=== PATIENT | female | born 1935 | race African-American/Black ===

== ENCOUNTER 2020-07-11 15:13 | Emergency (ER) | payer OTHER, MEDICAID ==
[~2020-07-11] VITALS: Ht 154.9 cm; Wt 53.0 kg
[2020-07-11] MEDS ORDERED: SODIUM CHLORIDE 0.9% 1,000 ML IV ONE (15:30)
[2020-07-11 17:15] LABS: HEMATOCRIT. 29.2 % (36.0-48.0); HEMOGLOBIN. 8.9 g/dL (12.0-16.0); MEAN CORPUSCULAR HEMOGLOBIN 27.9 pg (28.0-32.0); MEAN CORPUSCULAR VOLUME 91.7 fL (81.0-99.0); MEAN PLATELET VOLUME 7.5 fl (7.4-10.4); PLATELET 445 x1000/uL (130-400); RED BLOOD CELL COUNT 3.18 mill/uL (4.2-5.4); RED CELL DISTRIBUTION WIDTH 17.3 % (11.6-14.6)
[2020-07-11 17:24] LABS: CHLORIDE 109 mEq/L (98-107)
[2020-07-11 17:35] LABS: PROTHROMBIN TIME 10.4 sec (9.6-11.0)
[2020-07-11 17:39] LABS: PLATELET ESTIMATE INCREASED
[2020-07-11 18:09] LABS: CLARITY URINE CLEAR (CLEAR); COLOR URINE YELLOW (YELLOW); KETONES URINE NEGATIVE (NEGATIVE); LEUKOCYTE ESTERASE URINE 1+ (NEGATIVE); NITRITE URINE NEGATIVE (NEGATIVE); OCCULT BLOOD URINE NEGATIVE (NEGATIVE); PH URINE 5.5 (4.5-8.0); PROTEIN URINE NEGATIVE (NEGATIVE); SPECIFIC GRAVITY URINE 1.018 (1.005-1.030); UROBILINOGEN URINE 0.2 E.U./dL (0.2-1.0)
[2020-07-11] MEDS ORDERED: PIPERACILLIN/TAZ 3.375G PREMIX 50 ML IV NR (18:15)
[2020-07-11] MEDS ORDERED: SODIUM CHLORIDE 0.9% 1000ML BAG (SEPSIS BOLUS) IV NR (18:15)
[2020-07-11 20:58] VITALS: BP 150/71
== END 2020-07-11 20:58 | disposition short-term general hospital (02) ==
LOC: ER 15:13 → CANBEDREQ 23:04
DX: A41.9 Sepsis, unspecified organism (principal); N39.0 Urinary tract infection, site not specified; R62.7 Adult failure to thrive; D64.9 Anemia, unspecified; I10 Essential (primary) hypertension; K50.90 Crohn's disease, unspecified, without complications; M19.90 Unspecified osteoarthritis, unspecified site; Z68.22 Body mass index [BMI] 22.0-22.9, adult
CPT/HCPCS: 36415; 70450; 71045; 80053; 81003; 83605; 83880; 84145; 84484; 85025; 85610; 86850; 86900; 86901; 87040; 87086; 93005; 96361; 96365; 99285; J2543; J7030

== ENCOUNTER 2021-02-16 11:48 | Inpatient (IN) | payer MEDICARE, MEDICAID ==
[~2021-02-16] VITALS: Ht 157.5 cm; Wt 44.9 kg
[2021-02-16] MEDS ORDERED: SODIUM CHLORIDE 0.9% 1000ML BAG (SEPSIS BOLUS) IV ONE (13:15)
[2021-02-16 13:23] LABS: HEMATOCRIT. 30.8 % (36.0-48.0); MEAN CORPUSCULAR HEMOGLOBIN 25.9 pg (28.0-32.0); MEAN CORPUSCULAR VOLUME 88.7 fL (81.0-99.0); MEAN PLATELET VOLUME 8.1 fl (7.4-10.4); PLATELET 580 x1000/uL (130-400); RED BLOOD CELL COUNT 3.47 mill/uL (4.2-5.4); RED CELL DISTRIBUTION WIDTH 17.8 % (11.6-14.6)
[2021-02-16 13:26] LABS: CHLORIDE 112 mEq/L (98-107)
[2021-02-16 13:45] LABS: PROTHROMBIN TIME 10.9 sec (9.6-11.0)
[2021-02-16] MEDS ORDERED: CEFTRIAXONE 1 G PREMIX 50 ML IV ONE (13:45)
[2021-02-16 14:12] LABS: BG BASE EXCESS -10.6 mmol/L (-2.0-2.0); BG CARBOXYHEMOGLOBIN 0.2 % (0.5-1.5); BG DEOXYHEMOGLOBIN 0.8 % (0.0-5.0); BG FRACTION INSPIRED OXYGEN 36; BG HCO3 ACT 13.9 mmol/L (22.0-26.0); BG METHEMOGLOBIN 0.3 % (0.0-1.5); BG OXYGEN SATURATION 99.2 % (92.0-98.5); BG OXYHEMOGLOBIN 98.7 % (94.0-97.0); BG PCO2 26.3 mmHg (35.0-45.0); BG PH 7.342 (7.350-7.450); BG PO2 189.8 mmHg (75.0-100.0); BG SAMPLE SITE RIGHT BRACHIAL; BG TOTAL HEMOGLOBIN 8.4 g/dL (12.0-18.0); BG VENT MODE NASAL CANNULA
[2021-02-16 14:48] LABS: CLARITY URINE CLEAR (CLEAR); COLOR URINE YELLOW (YELLOW); KETONES URINE 3+ (NEGATIVE); LEUKOCYTE ESTERASE URINE NEGATIVE (NEGATIVE); NITRITE URINE NEGATIVE (NEGATIVE); OCCULT BLOOD URINE NEGATIVE (NEGATIVE); PH URINE 5.5 (4.5-8.0); PROTEIN URINE 1+ (NEGATIVE); SPECIFIC GRAVITY URINE 1.021 (1.005-1.030); UROBILINOGEN URINE 0.2 E.U./dL (0.2-1.0)
[2021-02-16] MEDS ORDERED: DEXTROSE 50% WATER 50ML SYRINGE IV ONE (15:15)
[2021-02-16] MEDS ORDERED: DILTIAZEM HCL 5MG/ML 5ML VIAL IV ONE ×2 (15:45→16:30)
[2021-02-16 15:57] LABS: PLATELET ESTIMATE INCREASED
[2021-02-16] MEDS ORDERED: DILTIAZEM HCL 125 MG in DEXT 5% WATER 100 ML IV ONE ×2 (16:00→16:30)
[2021-02-16 18:45] VITALS: BP 121/41
[2021-02-16] MEDS ORDERED: DIPHENHYDRAMINE 50MG/ML VIAL IV PRN (19:00)
[2021-02-16] MEDS ORDERED: ZOLPIDEM TARTRATE 5MG TABLET PO PRN (19:00)
[2021-02-16] MEDS ORDERED: ACETAMINOPHEN 325MG TABLET PO PRN ×2 (19:00)
[2021-02-16 20:00] VITALS: BP 106/38
[2021-02-16] MEDS ORDERED: ENOXAPARIN 40MG/0.4ML SYR SUBCUT SCH (20:00)
[2021-02-16 20:50] VITALS: BP 122/41
[2021-02-16 22:00] VITALS: BP 100/38
[2021-02-16] MEDS: DEXT 5%/0.45% NACL 1000ML 1,000 ML IV SCH (22:14)
[2021-02-17] VITALS (10 sets, daily range): BP systolic 97–148; BP diastolic 41–90
[2021-02-17] MEDS: DEXT 5%/0.45% NACL 1000ML 1,000 ML IV SCH ×2 (05:44→15:00)
[2021-02-17 08:21] LABS: CHLORIDE 116 mEq/L (98-107)
[2021-02-17 08:26] LABS: PHOSPHORUS 2.4 mg/dL (2.5-4.9)
[2021-02-17] MEDS: ATENOLOL 25MG TABLET PO SCH ×2 (08:35→16:21)
[2021-02-17] MEDS ORDERED: ATENOLOL 50 MG TABLET PO SCH (09:00)
[2021-02-17] MEDS: DILTIAZEM HCL 30MG TABLET PO SCH ×2 (10:00→17:20)
[2021-02-17 11:25] LABS: HEMATOCRIT. 23.2 % (36.0-48.0); HEMOGLOBIN. 7.2 g/dL (12.0-16.0); MEAN CORPUSCULAR HEMOGLOBIN 26.5 pg (28.0-32.0); MEAN CORPUSCULAR VOLUME 85.9 fL (81.0-99.0); MEAN PLATELET VOLUME 7.8 fl (7.4-10.4); PLATELET 346 x1000/uL (130-400); RED BLOOD CELL COUNT 2.71 mill/uL (4.2-5.4); RED CELL DISTRIBUTION WIDTH 16.9 % (11.6-14.6)
[2021-02-17] MEDS: POTASSIUM CHLORIDE 20MEQ TABLET SR PO SCH ×2 (12:40→15:24)
[2021-02-17] MEDS ORDERED: MAGNESIUM 1 G PREMIX 100 ML IV NR (13:00)
[2021-02-17] MEDS ORDERED: POTASSIUM PHOS,M-BASIC-D-BASIC 15 MMOL in DEXT 5% WATER 245 ML IV NR (13:00)
[2021-02-17] MEDS ORDERED: ENOXAPARIN 30MG/0.3ML SYR SUBCUT SCH (21:00)
[2021-02-17 22:50] LABS: PLATELET ESTIMATE NORMAL
[2021-02-18] VITALS (11 sets, daily range): BP systolic 94–153; BP diastolic 41–78
[2021-02-18] MEDS: DEXT 5%/0.45% NACL 1000ML 1,000 ML IV SCH ×3 (00:12→20:57)
[2021-02-18] MEDS: DILTIAZEM HCL 30MG TABLET PO SCH ×4 (02:06→21:40)
[2021-02-18 05:39] LABS: CHLORIDE 113 mEq/L (98-107)
[2021-02-18 05:46] LABS: PHOSPHORUS 2.5 mg/dL (2.5-4.9)
[2021-02-18 07:32] LABS: BASOPHILS % 0.2 % (0.0-2.0); EOSINOPHILS % 1.8 % (0.0-5.0); LYMPHOCYTES % 7.9 % (20.0-50.0); MEAN CORPUSCULAR HEMOGLOBIN 25.2 pg (28.0-32.0); MEAN CORPUSCULAR VOLUME 81.9 fL (81.0-99.0); MEAN PLATELET VOLUME 8.6 fl (7.4-10.4); MONOCYTES % 10.1 % (2.0-8.0); PLATELET 318 x1000/uL (130-400); RED BLOOD CELL COUNT 2.52 mill/uL (4.2-5.4); RED CELL DISTRIBUTION WIDTH 16.9 % (11.6-14.6)
[2021-02-18 08:48] LABS: HEMATOCRIT. 20.6 % (36.0-48.0); HEMOGLOBIN. 6.3 g/dL (12.0-16.0)
[2021-02-18] MEDS: ATENOLOL 25MG TABLET PO SCH ×3 (08:56→21:41)
[2021-02-18] MEDS: PANTOPRAZOLE SODIUM 40 MG/VIAL IV SCH ×2 (10:38→20:57)
[2021-02-18 16:27] LABS: BASOPHILS % 0.4 % (0.0-2.0); EOSINOPHILS % 1.9 % (0.0-5.0); HEMATOCRIT. 25.5 % (36.0-48.0); HEMOGLOBIN. 8.3 g/dL (12.0-16.0); LYMPHOCYTES % 7.5 % (20.0-50.0); MEAN CORPUSCULAR HEMOGLOBIN 27.1 pg (28.0-32.0); MEAN CORPUSCULAR VOLUME 82.7 fL (81.0-99.0); MEAN PLATELET VOLUME 7.7 fl (7.4-10.4); MONOCYTES % 9.1 % (2.0-8.0); NEUTROPHILS % 81.1 % (40.0-76.0); PLATELET 332 x1000/uL (130-400); RED BLOOD CELL COUNT 3.08 mill/uL (4.2-5.4); RED CELL DISTRIBUTION WIDTH 16.8 % (11.6-14.6)
[2021-02-18 16:42] LABS: PROTHROMBIN TIME 10.5 sec (9.6-11.0)
[2021-02-18 16:43] LABS: TOTAL IRON BINDING CAPACITY 262 ug/dL (250-450)
[2021-02-18 17:04] LABS: FERRITIN 33 ng/mL (10-291)
[2021-02-18 17:15] LABS: HEPATITIS B SURFACE ANTIGEN NEGATIVE
[2021-02-18 17:21] LABS: VITAMIN B12 SERUM 903 pg/mL (211-911)
[2021-02-18 17:45] LABS: HEPATITIS A AB IGM NEGATIVE (NEGATIVE)
[2021-02-18 20:23] LABS: HEMATOCRIT 30.4 % (36.0-48.0); HEMOGLOBIN 9.7 g/dL (12.0-16.0)
[2021-02-19] VITALS (7 sets, daily range): BP systolic 113–144; BP diastolic 46–73
[2021-02-19] MEDS: DILTIAZEM HCL 30MG TABLET PO SCH ×3 (05:37→21:04)
[2021-02-19 06:28] LABS: HEMATOCRIT. 26.5 % (36.0-48.0); HEMOGLOBIN. 8.5 g/dL (12.0-16.0); MEAN CORPUSCULAR HEMOGLOBIN 26.4 pg (28.0-32.0); MEAN CORPUSCULAR VOLUME 82.1 fL (81.0-99.0); MEAN PLATELET VOLUME 7.9 fl (7.4-10.4); PLATELET 320 x1000/uL (130-400); RED BLOOD CELL COUNT 3.23 mill/uL (4.2-5.4); RED CELL DISTRIBUTION WIDTH 16.9 % (11.6-14.6)
[2021-02-19 06:30] LABS: CHLORIDE 112 mEq/L (98-107)
[2021-02-19] MEDS: DEXT 5%/0.45% NACL 1000ML 1,000 ML IV SCH ×2 (06:51→17:20)
[2021-02-19] MEDS: PANTOPRAZOLE SODIUM 40 MG/VIAL IV SCH ×2 (08:23→21:03)
[2021-02-19] MEDS: ATENOLOL 25MG TABLET PO SCH ×2 (10:17→21:05)
[2021-02-19 14:21] LABS: PLATELET ESTIMATE NORMAL
[2021-02-20] VITALS (11 sets, daily range): BP systolic 90–137; BP diastolic 39–90
[2021-02-20] MEDS: DEXT 5%/0.45% NACL 1000ML 1,000 ML IV SCH ×3 (03:30→23:00)
[2021-02-20] MEDS: DILTIAZEM HCL 30MG TABLET PO SCH ×2 (06:16→20:14)
[2021-02-20 06:38] LABS: PARTIAL THROMBOPLASTIN TIME 34.1 sec (23.4-31.0); PROTHROMBIN TIME 10.9 sec (9.6-11.0)
[2021-02-20 06:41] LABS: HEMATOCRIT. 26.4 % (36.0-48.0); HEMOGLOBIN. 8.5 g/dL (12.0-16.0); MEAN CORPUSCULAR HEMOGLOBIN 26.1 pg (28.0-32.0); MEAN CORPUSCULAR VOLUME 81.2 fL (81.0-99.0); MEAN PLATELET VOLUME 7.8 fl (7.4-10.4); PLATELET 323 x1000/uL (130-400); RED BLOOD CELL COUNT 3.25 mill/uL (4.2-5.4); RED CELL DISTRIBUTION WIDTH 17.2 % (11.6-14.6)
[2021-02-20 06:42] LABS: CHLORIDE 111 mEq/L (98-107)
[2021-02-20] MEDS: ATENOLOL 25MG TABLET PO SCH ×2 (09:00→20:14)
[2021-02-20] MEDS: PANTOPRAZOLE SODIUM 40 MG/VIAL IV SCH ×2 (09:30→20:13)
[2021-02-20 16:31] LABS: PLATELET ESTIMATE NORMAL
[2021-02-20] MEDS ORDERED: MIDAZOLAM HCL 5 MG/5 ML VIAL IV PRN (17:17)
[2021-02-20] MEDS ORDERED: MIDAZOLAM HCL 5 MG/5 ML VIAL ONE (17:20)
[2021-02-20] MEDS ORDERED: FENTANYL CITRATE/PF 50MCG/ML 2ML VIAL ONE (17:21)
[2021-02-21] VITALS (35 sets, daily range): BP systolic 97–146; BP diastolic 44–86
[2021-02-21] MEDS: DEXT 5%/0.45% NACL 1000ML 1,000 ML IV SCH ×3 (00:25→20:34)
[2021-02-21] MEDS: DILTIAZEM HCL 30MG TABLET PO SCH ×4 (02:00→20:35)
[2021-02-21 06:47] LABS: BASOPHILS % 0.4 % (0.0-2.0); HEMATOCRIT. 23.4 % (36.0-48.0); HEMOGLOBIN. 7.6 g/dL (12.0-16.0); LYMPHOCYTES % 8.6 % (20.0-50.0); MEAN CORPUSCULAR HEMOGLOBIN 26.5 pg (28.0-32.0); MEAN CORPUSCULAR VOLUME 81.1 fL (81.0-99.0); MEAN PLATELET VOLUME 7.7 fl (7.4-10.4); MONOCYTES % 10.7 % (2.0-8.0); NEUTROPHILS % 76.3 % (40.0-76.0); PLATELET 314 x1000/uL (130-400); RED BLOOD CELL COUNT 2.88 mill/uL (4.2-5.4); RED CELL DISTRIBUTION WIDTH 16.5 % (11.6-14.6)
[2021-02-21 06:55] LABS: CHLORIDE 108 mEq/L (98-107)
[2021-02-21] MEDS: PANTOPRAZOLE SODIUM 40 MG/VIAL IV SCH ×2 (08:22→20:40)
[2021-02-21] MEDS: ATENOLOL 25MG TABLET PO SCH (08:23)
[2021-02-21] MEDS ORDERED: AMIODARONE HCL 150 MG in DEXT 5% WATER 100 ML IV NR (08:45)
[2021-02-21 09:11] LABS: SACCHAROMYCES CEREVISIAE IGG <20.0 Units (0.0-24.9); SACCHAROMYCES CEREVISIAE IGM <20.0 Units (0.0-24.9)
[2021-02-21] MEDS: AMIODARONE HCL 900 MG in DEXT 5% WATER 482 ML IV SCH (09:17)
[2021-02-21] MEDS ORDERED: POTASSIUM CHLORIDE 20MEQ TABLET SR PO SCH (21:00)
[2021-02-21] MEDS ORDERED: MAGNESIUM 2 G PREMIX 50 ML IV SCH (21:00)
[2021-02-22] VITALS (13 sets, daily range): BP systolic 106–149; BP diastolic 42–63
[2021-02-22] MEDS: ONDANSETRON HCL 4MG/2ML INJ IV PRN (02:36)
[2021-02-22] MEDS: DILTIAZEM HCL 30MG TABLET PO SCH ×4 (02:36→21:22)
[2021-02-22] MEDS: DEXT 5%/0.45% NACL 1000ML 1,000 ML IV SCH ×2 (05:00→16:04)
[2021-02-22 05:05] LABS: CHLORIDE 107 mEq/L (98-107)
[2021-02-22] MEDS: AMIODARONE HCL 900 MG in DEXT 5% WATER 482 ML IV SCH (05:20)
[2021-02-22 06:09] LABS: HEMATOCRIT. 21.4 % (36.0-48.0); HEMOGLOBIN. 7.1 g/dL (12.0-16.0); MEAN CORPUSCULAR HEMOGLOBIN 26.1 pg (28.0-32.0); MEAN PLATELET VOLUME 7.9 fl (7.4-10.4); PLATELET 348 x1000/uL (130-400); RED CELL DISTRIBUTION WIDTH 16.6 % (11.6-14.6)
[2021-02-22] MEDS: SUCRALFATE 1 G/10 ML UDC PO SCH ×4 (07:30→21:22)
[2021-02-22] MEDS: PANTOPRAZOLE SODIUM 40 MG/VIAL IV SCH ×3 (09:00→21:22)
[2021-02-22 11:13] LABS: PLATELET ESTIMATE NORMAL
[2021-02-23] VITALS (9 sets, daily range): BP systolic 113–146; BP diastolic 59–106
[2021-02-23] MEDS: DEXT 5%/0.45% NACL 1000ML 1,000 ML IV SCH ×3 (01:55→20:40)
[2021-02-23] MEDS: DILTIAZEM HCL 30MG TABLET PO SCH ×2 (02:06→09:13)
[2021-02-23 06:20] LABS: HEMATOCRIT. 23.3 % (36.0-48.0); HEMOGLOBIN. 7.7 g/dL (12.0-16.0); MEAN CORPUSCULAR HEMOGLOBIN 25.9 pg (28.0-32.0); MEAN CORPUSCULAR VOLUME 78.8 fL (81.0-99.0); MEAN PLATELET VOLUME 7.8 fl (7.4-10.4); PLATELET 357 x1000/uL (130-400); RED BLOOD CELL COUNT 2.96 mill/uL (4.2-5.4)
[2021-02-23 06:26] LABS: CHLORIDE 103 mEq/L (98-107)
[2021-02-23] MEDS: SUCRALFATE 1 G/10 ML UDC PO SCH ×4 (06:47→20:45)
[2021-02-23] MEDS ORDERED: AMIODARONE HCL 200 MG TABLET PO SCH ×2 (09:00→10:30)
[2021-02-23] MEDS: PANTOPRAZOLE SODIUM 40 MG/VIAL IV SCH ×2 (09:14→20:39)
[2021-02-23] MEDS ORDERED: DILTIAZEM HCL 5MG/ML 5ML VIAL IV PRN (10:30)
[2021-02-23 14:38] LABS: PLATELET ESTIMATE NORMAL
[2021-02-23] MEDS: DILTIAZEM HCL 60MG TABLET PO SCH ×2 (14:52→20:39)
[2021-02-23] MEDS: AMIODARONE HCL 200 MG TABLET PO SCH (18:11)
[2021-02-24] VITALS (10 sets, daily range): BP systolic 102–130; BP diastolic 42–60
[2021-02-24] MEDS: DILTIAZEM HCL 60MG TABLET PO SCH ×4 (01:50→20:37)
[2021-02-24] MEDS ORDERED: MORPHINE SULFATE 4 MG/ML CPJ (NOT FOR IM USE) IV PRN (02:15)
[2021-02-24] MEDS: MORPHINE SULFATE 4 MG/ML CPJ (NOT FOR IM USE) IV PRN (02:37)
[2021-02-24] MEDS: DEXT 5%/0.45% NACL 1000ML 1,000 ML IV SCH ×2 (07:00→16:11)
[2021-02-24] MEDS: PANTOPRAZOLE SODIUM 40 MG/VIAL IV SCH ×2 (08:15→20:37)
[2021-02-24] MEDS: SUCRALFATE 1 G/10 ML UDC PO SCH ×4 (08:15→20:36)
[2021-02-24] MEDS: AMIODARONE HCL 200 MG TABLET PO SCH ×2 (08:16→16:10)
[2021-02-24] MEDS ORDERED: SORBITOL 70% SOLN 30ML PO SCH ×2 (12:00→16:00)
[2021-02-24] MEDS: ONDANSETRON HCL 4MG/2ML INJ IV PRN (20:42)
[2021-02-25] VITALS (11 sets, daily range): BP systolic 116–168; BP diastolic 53–100
[2021-02-25] MEDS: MORPHINE SULFATE 4 MG/ML CPJ (NOT FOR IM USE) IV PRN (01:08)
[2021-02-25] MEDS: DILTIAZEM HCL 60MG TABLET PO SCH ×4 (01:52→22:47)
[2021-02-25] MEDS: DEXT 5%/0.45% NACL 1000ML 1,000 ML IV SCH ×2 (03:23→13:00)
[2021-02-25] MEDS: ONDANSETRON HCL 4MG/2ML INJ IV PRN ×2 (04:09→09:35)
[2021-02-25] MEDS ORDERED: MORPHINE SULFATE 4 MG/ML CPJ (NOT FOR IM USE) IV NR (04:30)
[2021-02-25 06:21] LABS: HEMATOCRIT. 26.1 % (36.0-48.0); HEMOGLOBIN. 8.4 g/dL (12.0-16.0); MEAN CORPUSCULAR VOLUME 77.8 fL (81.0-99.0); MEAN PLATELET VOLUME 7.8 fl (7.4-10.4); PLATELET 556 x1000/uL (130-400); RED BLOOD CELL COUNT 3.35 mill/uL (4.2-5.4); RED CELL DISTRIBUTION WIDTH 17.2 % (11.6-14.6)
[2021-02-25 06:39] LABS: PROTHROMBIN TIME 10.7 sec (9.6-11.0)
[2021-02-25] MEDS: SUCRALFATE 1 G/10 ML UDC PO SCH ×4 (06:50→22:46)
[2021-02-25 07:50] LABS: CHLORIDE 100 mEq/L (98-107)
[2021-02-25] MEDS: AMIODARONE HCL 200 MG TABLET PO SCH ×2 (09:35→22:47)
[2021-02-25] MEDS: PANTOPRAZOLE SODIUM 40 MG/VIAL IV SCH ×2 (09:35→22:47)
[2021-02-25] MEDS ORDERED: DIGOXIN 500MCG/2ML AMP IV NR (16:00)
[2021-02-25 16:33] LABS: PLATELET ESTIMATE INCREASED
[2021-02-25] MEDS ORDERED: MIDAZOLAM HCL 5 MG/5 ML VIAL ONE (17:18)
[2021-02-25] MEDS ORDERED: FENTANYL CITRATE/PF 50MCG/ML 2ML VIAL ONE (17:19)
[2021-02-25] MEDS ORDERED: AMIODARONE HCL 50MG/ML 9ML VIAL IV ONE (18:15)
[2021-02-25] MEDS ORDERED: AMIODARONE HCL 150 MG in DEXT 5% WATER 100 ML IV NR (19:30)
[2021-02-25] MEDS ORDERED: AMIODARONE HCL 900 MG in DEXT 5% WATER 500 ML IV NR (20:00)
[2021-02-26] VITALS (8 sets, daily range): BP systolic 103–143; BP diastolic 47–77
[2021-02-26] MEDS: DILTIAZEM HCL 60MG TABLET PO SCH ×4 (03:03→20:00)
[2021-02-26] MEDS: DEXT 5%/0.45% NACL 1000ML 1,000 ML IV SCH ×2 (03:04→13:03)
[2021-02-26 06:00] LABS: CHLORIDE 101 mEq/L (98-107)
[2021-02-26 06:33] LABS: HEMATOCRIT. 22.5 % (36.0-48.0); HEMOGLOBIN. 7.2 g/dL (12.0-16.0); MEAN CORPUSCULAR HEMOGLOBIN 25.2 pg (28.0-32.0); MEAN CORPUSCULAR VOLUME 78.6 fL (81.0-99.0); MEAN PLATELET VOLUME 7.9 fl (7.4-10.4); PLATELET 486 x1000/uL (130-400); RED BLOOD CELL COUNT 2.87 mill/uL (4.2-5.4); RED CELL DISTRIBUTION WIDTH 17.4 % (11.6-14.6)
[2021-02-26] MEDS: SUCRALFATE 1 G/10 ML UDC PO SCH ×4 (08:23→20:36)
[2021-02-26] MEDS: PANTOPRAZOLE SODIUM 40 MG/VIAL IV SCH ×2 (08:23→20:36)
[2021-02-26] MEDS ORDERED: AMIODARONE HCL 200 MG TABLET PO SCH (09:00)
[2021-02-26] MEDS: AMIODARONE HCL 200 MG TABLET PO SCH ×2 (09:00→20:49)
[2021-02-26] MEDS ORDERED: KCL 20MEQ/100ML PREMIX 100 ML IV SCH (12:00)
[2021-02-26] MEDS ORDERED: AMIODARONE HCL 900 MG in DEXT 5% WATER 482 ML IV SCH (12:00)
[2021-02-26] MEDS ORDERED: POTASSIUM CHLORIDE INJ 40 MEQ in SODIUM CHLORIDE 0.9% 250 ML IV SCH (13:00)
[2021-02-26] MEDS ORDERED: NA PHOS,M-B/NA PHOS,DI-BA ENEMA 118ML PR SCH (13:00)
[2021-02-26] MEDS ORDERED: POTASSIUM CHLORIDE 20MEQ TABLET SR PO SCH (15:00)
[2021-02-26 15:30] LABS: PLATELET ESTIMATE SLIGHTLY INCREASED
[2021-02-26] MEDS ORDERED: MIDAZOLAM HCL 5 MG/5 ML VIAL ONE (17:02)
[2021-02-26] MEDS ORDERED: FENTANYL CITRATE/PF 50MCG/ML 2ML VIAL ONE (17:02)
[2021-02-26] MEDS ORDERED: MIDAZOLAM HCL 5 MG/5 ML VIAL IV PRN (17:30)
[2021-02-26] MEDS: KCL 20MEQ/100ML PREMIX 100 ML IV SCH ×2 (20:40→20:46)
[2021-02-27] VITALS (8 sets, daily range): BP systolic 110–145; BP diastolic 48–76
[2021-02-27] MEDS: DILTIAZEM HCL 60MG TABLET PO SCH ×3 (02:10→16:00)
[2021-02-27] MEDS: DEXT 5%/0.45% NACL 1000ML 1,000 ML IV SCH (04:41)
[2021-02-27 07:07] LABS: HEMATOCRIT. 23.4 % (36.0-48.0); HEMOGLOBIN. 7.4 g/dL (12.0-16.0); MEAN CORPUSCULAR HEMOGLOBIN 25.2 pg (28.0-32.0); MEAN CORPUSCULAR VOLUME 79.4 fL (81.0-99.0); MEAN PLATELET VOLUME 7.8 fl (7.4-10.4); PLATELET 468 x1000/uL (130-400); RED BLOOD CELL COUNT 2.95 mill/uL (4.2-5.4)
[2021-02-27 07:09] LABS: CHLORIDE 106 mEq/L (98-107)
[2021-02-27] MEDS: SUCRALFATE 1 G/10 ML UDC PO SCH ×3 (08:47→18:18)
[2021-02-27] MEDS: PANTOPRAZOLE SODIUM 40 MG/VIAL IV SCH (08:47)
[2021-02-27] MEDS: AMIODARONE HCL 200 MG TABLET PO SCH (10:10)
[2021-02-27 13:28] LABS: PLATELET ESTIMATE INCREASED
[2021-02-27] MEDS ORDERED: PANTOPRAZOLE 40MG DR TABLET PO SCH (21:00)
== END 2021-02-27 19:55 | DRG 308 ==
LOC: ER 11:48 → 5EST 14:53 → EDBEDREQ 14:57 → EDBEDREQTM 14:57 → EDBEDREQSVC 14:57 → ENRESERV 15:27
PROVIDERS: ADMIT Internal Medicine; ATTEND Internal Medicine
PROC: 30233N1 Transfusion of Nonautologous Red Blood Cells into Peripheral Vein, Percutaneous Approach (ICD-10-PCS; principal; 2021-02-18)
PROC: 0DB68ZX Excision of Stomach, Via Natural or Artificial Opening Endoscopic, Diagnostic (ICD-10-PCS; 2021-02-20)
PROC: 0DJD8ZZ Inspection of Lower Intestinal Tract, Via Natural or Artificial Opening Endoscopic (ICD-10-PCS; 2021-02-26)
DX: I48.0 Paroxysmal atrial fibrillation (principal); E43 Unspecified severe protein-calorie malnutrition; I67.82 Cerebral ischemia; J84.9 Interstitial pulmonary disease, unspecified; Z68.1 Body mass index [BMI] 19.9 or less, adult; K50.911 Crohn's disease, unspecified, with rectal bleeding; I47.1 Supraventricular tachycardia; I48.92 Unspecified atrial flutter; E16.2 Hypoglycemia, unspecified; I10 Essential (primary) hypertension; I49.3 Ventricular premature depolarization; R62.7 Adult failure to thrive; Y92.009 Unspecified place in unspecified non-institutional (private) residence as the place of occurrence of the external cause; Z86.73 Personal history of transient ischemic attack (TIA), and cerebral infarction without residual deficits; Z87.891 Personal history of nicotine dependence; Z20.822 Contact with and (suspected) exposure to COVID-19; D50.9 Iron deficiency anemia, unspecified; E87.6 Hypokalemia; I08.3 Combined rheumatic disorders of mitral, aortic and tricuspid valves; I25.10 Atherosclerotic heart disease of native coronary artery without angina pectoris; I49.1 Atrial premature depolarization; K29.70 Gastritis, unspecified, without bleeding; K44.9 Diaphragmatic hernia without obstruction or gangrene; K57.30 Diverticulosis of large intestine without perforation or abscess without bleeding; K59.00 Constipation, unspecified; K64.8 Other hemorrhoids; K76.0 Fatty (change of) liver, not elsewhere classified; K80.20 Calculus of gallbladder without cholecystitis without obstruction; L85.3 Xerosis cutis; M19.90 Unspecified osteoarthritis, unspecified site; M21.951 Unspecified acquired deformity of right thigh; M21.952 Unspecified acquired deformity of left thigh; S70.02XA Contusion of left hip, initial encounter; S30.0XXA Contusion of lower back and pelvis, initial encounter; S30.820A Blister (nonthermal) of lower back and pelvis, initial encounter
CPT/HCPCS: 36415; 36600; 71045; 74176; 76700; 80048; 80053; 80076; 81003; 82270; 82375; 82607; 82728; 82746; 82805; 82962; 83036; 83540; 83550; 83605; 83735; 83880; 84100; 84134; 84145; 84484; 85014; 85018; 85025; 85384; 86256; 86671; 86705; 86709; 86803; 86850; 86900; 86920; 87340; 87426; 88305; 88312; 88313; 93005; 93306; 93923; 93970; 97162; 97166; 99291; A6261; C9113; J0282; J0696; J1160; J1650; J2250; J2270; J2405; J3010; J3475; J3480; J3490; J7030; J7040; J7050; J7060; P9016; A4315

== ENCOUNTER 2022-01-11 11:30 | Inpatient (IN) | payer MEDICARE, MEDICAID ==
[~2022-01-11] VITALS: Ht 154.9 cm; Wt 49.0 kg
[~2022-01-11 11:30] MED LIST: AMI2 PO; AMIN30LI2 PO; ASCO-339 MT; CALC-26 PO; CAPS60CR3 TP; FAMO20TA8 PO; FERR236T3 MT; GABA-529 MT; HYDR-4001 PO; MEGE400O5 MT; MESA500C PO; MULT-379 MT; MULT-647 PO; NITR0.4T49 SL; VITA1CAP MT
[2022-01-11] MEDS ORDERED: ACETAMINOPHEN 325MG TABLET PO STA ×2 (12:06→13:30)
[2022-01-11] MEDS ORDERED: SODIUM CHLORIDE 0.9% 1000ML BAG (SEPSIS BOLUS) IV ONE (12:15)
[2022-01-11] MEDS ORDERED: CEFTRIAXONE 1 G PREMIX 50 ML IV ONE (12:15)
[2022-01-11 12:58] LABS: CHLORIDE 110 mEq/L (98-107)
[2022-01-11 13:00] LABS: HEMATOCRIT. 35.2 % (36.0-48.0); HEMOGLOBIN. 11.7 g/dL (12.0-16.0); MEAN CORPUSCULAR HEMOGLOBIN 26.9 pg (28.0-32.0); MEAN CORPUSCULAR VOLUME 80.9 fL (81.0-99.0); MEAN PLATELET VOLUME 7.4 fl (7.4-10.4); PLATELET 488 x1000/uL (130-400); RED BLOOD CELL COUNT 4.34 mill/uL (4.2-5.4); RED CELL DISTRIBUTION WIDTH 17.6 % (11.6-14.6)
[2022-01-11 13:35] LABS: PLATELET ESTIMATE INCREASED
[2022-01-11] MEDS ORDERED: LORAZEPAM 2MG/ML CPJ IV ONE (15:30)
[2022-01-11 16:07] LABS: CLARITY URINE TURBID (CLEAR); COLOR URINE YELLOW (YELLOW); KETONES URINE NEGATIVE (NEGATIVE); LEUKOCYTE ESTERASE URINE 3+ (NEGATIVE); NITRITE URINE NEGATIVE (NEGATIVE); OCCULT BLOOD URINE 3+ (NEGATIVE); PROTEIN URINE TRACE (NEGATIVE); SPECIFIC GRAVITY URINE 1.014 (1.005-1.030); UROBILINOGEN URINE 0.2 E.U./dL (0.2-1.0)
[2022-01-11 17:30] VITALS: BP 111/79
[2022-01-11] MEDS ORDERED: MAGNESIUM/ALUMINUM HYDROXIDE/SIMETHICONE 30ML UDC PO PRN (17:30)
[2022-01-11] MEDS ORDERED: PIPERACILLIN/TAZ 3.375G PREMIX 50 ML IV SCH (17:30)
[2022-01-11] MEDS ORDERED: DOCUSATE SODIUM 100MG CAPSULE PO PRN (17:30)
[2022-01-11] MEDS ORDERED: ACETAMINOPHEN 325MG TABLET PO PRN ×2 (17:30)
[2022-01-11] MEDS ORDERED: NITROGLYCERIN 0.4MG TABLET SL SL PRN (17:30)
[2022-01-11] MEDS ORDERED: NA PHOS,M-B/NA PHOS,DI-BA ENEMA 118ML PR PRN (17:30)
[2022-01-11] MEDS ORDERED: KETOROLAC 15MG/ML VIAL IV PRN (17:30)
[2022-01-11] MEDS ORDERED: ENOXAPARIN 40MG/0.4ML SYR SUBCUT SCH (17:30)
[2022-01-11] MEDS ORDERED: GUAIFENESIN 200MG/10ML SUGAR FREE UDC PO PRN (17:30)
[2022-01-11] MEDS ORDERED: ONDANSETRON HCL 4MG/2ML INJ IV PRN (17:30)
[2022-01-11] MEDS ORDERED: IPRATROPIUM/ALBUTEROL 0.5-3(2.5)MG/3ML NEB NEB PRN (17:30)
[2022-01-11] MEDS ORDERED: TRAMADOL 50MG TABLET PO PRN (17:30)
[2022-01-11 18:00] VITALS: BP 111/79
[2022-01-11 20:00] VITALS: BP 146/63
[2022-01-11] MEDS: ASCORBIC ACID 500 MG TABLET PO SCH ×2 (21:00→23:00)
[2022-01-11] MEDS: METOPROLOL TARTRATE 25MG TABLET PO SCH ×2 (21:00→23:00)
[2022-01-11] MEDS: FAMOTIDINE 20MG TABLET PO SCH ×2 (21:00→23:00)
[2022-01-11] MEDS: VANCOMYCIN 750MG PMX (XELLIA) 150 ML IV SCH (21:47)
[2022-01-11] MEDS: ENOXAPARIN 30MG/0.3ML SYR SUBCUT SCH (22:59)
[2022-01-11] MEDS: PIPERACILLIN/TAZOBACTAM 3.375G in DEXT 5% WATER 50ML IV SCH (23:33)
[2022-01-12] VITALS: BP 130/67
[2022-01-12 04:00] VITALS: BP 130/82
[2022-01-12] MEDS: PIPERACILLIN/TAZOBACTAM 3.375G in DEXT 5% WATER 50ML IV SCH ×3 (07:18→21:11)
[2022-01-12 08:00] VITALS: BP 143/74
[2022-01-12] MEDS: ZINC SULFATE 220 MG ( 50 ) CAPSULE PO SCH (10:15)
[2022-01-12] MEDS: CHOLECALCIFEROL (D3) 1000 UNIT TABLET PO SCH (10:15)
[2022-01-12] MEDS: ASPIRIN 325MG EC TABLET PO SCH (10:15)
[2022-01-12] MEDS: FAMOTIDINE 20MG TABLET PO SCH ×2 (10:15→21:11)
[2022-01-12] MEDS: ASCORBIC ACID 500 MG TABLET PO SCH ×2 (10:15→21:11)
[2022-01-12] MEDS: METOPROLOL TARTRATE 25MG TABLET PO SCH ×2 (10:16→20:57)
[2022-01-12 12:00] VITALS: BP 135/63
[2022-01-12 16:00] VITALS: BP 130/64
[2022-01-12 16:09] LABS: HEMATOCRIT. 32.1 % (36.0-48.0); HEMOGLOBIN. 10.5 g/dL (12.0-16.0); MEAN CORPUSCULAR HEMOGLOBIN 26.9 pg (28.0-32.0); MEAN CORPUSCULAR VOLUME 82.5 fL (81.0-99.0); MEAN PLATELET VOLUME 7.6 fl (7.4-10.4); PLATELET 440 x1000/uL (130-400); RED BLOOD CELL COUNT 3.89 mill/uL (4.2-5.4); RED CELL DISTRIBUTION WIDTH 17.8 % (11.6-14.6)
[2022-01-12 16:32] LABS: CHLORIDE 112 mEq/L (98-107)
[2022-01-12 16:44] LABS: CREATINE KINASE 35 IU/L (26-192); CREATINE KINASE MB FRACTION < 1.0 ng/mL (0.5-3.6); PHOSPHORUS 3.3 mg/dL (2.5-4.9)
[2022-01-12] MEDS: ENOXAPARIN 30MG/0.3ML SYR SUBCUT SCH (18:09)
[2022-01-12 18:25] LABS: PLATELET ESTIMATE INCREASED
[2022-01-12] MEDS: VANCOMYCIN 750MG PMX (XELLIA) 150 ML IV SCH (19:58)
[2022-01-12 20:00] VITALS: BP 107/47
[2022-01-13] VITALS: BP 123/59
[2022-01-13] MEDS: ZOLPIDEM TARTRATE 5MG TABLET PO PRN ×2 (00:53→22:02)
[2022-01-13 04:00] VITALS: BP 110/62
[2022-01-13] MEDS: PIPERACILLIN/TAZOBACTAM 3.375G in DEXT 5% WATER 50ML IV SCH ×3 (05:04→21:59)
[2022-01-13 07:35] LABS: CHLORIDE 108 mEq/L (98-107)
[2022-01-13 08:00] VITALS: BP 134/73
[2022-01-13] MEDS: CHOLECALCIFEROL (D3) 1000 UNIT TABLET PO SCH (08:47)
[2022-01-13] MEDS: ASCORBIC ACID 500 MG TABLET PO SCH ×2 (08:47→21:59)
[2022-01-13] MEDS: ASPIRIN 325MG EC TABLET PO SCH (08:47)
[2022-01-13] MEDS: FAMOTIDINE 20MG TABLET PO SCH ×2 (08:47→21:59)
[2022-01-13] MEDS: ZINC SULFATE 220 MG ( 50 ) CAPSULE PO SCH (08:47)
[2022-01-13] MEDS: METOPROLOL TARTRATE 25MG TABLET PO SCH ×2 (08:48→21:59)
[2022-01-13 12:00] VITALS: BP 119/50
[2022-01-13 16:00] VITALS: BP 168/89
[2022-01-13] MEDS: CLONIDINE 0.1MG TABLET PO PRN (16:07)
[2022-01-13] MEDS: VANCOMYCIN 750MG PMX (XELLIA) 150 ML IV SCH (18:08)
[2022-01-13] MEDS: ENOXAPARIN 30MG/0.3ML SYR SUBCUT SCH (18:08)
[2022-01-13 20:00] VITALS: BP 136/74
[2022-01-14] VITALS: BP 102/56
[2022-01-14 04:00] VITALS: BP 132/79
[2022-01-14] MEDS: PIPERACILLIN/TAZOBACTAM 3.375G in DEXT 5% WATER 50ML IV SCH ×3 (05:59→22:03)
[2022-01-14 08:00] VITALS: BP 170/90
[2022-01-14] MEDS: CHOLECALCIFEROL (D3) 1000 UNIT TABLET PO SCH (09:26)
[2022-01-14] MEDS: ASPIRIN 325MG EC TABLET PO SCH (09:27)
[2022-01-14] MEDS: FAMOTIDINE 20MG TABLET PO SCH ×2 (09:27→22:03)
[2022-01-14] MEDS: ASCORBIC ACID 500 MG TABLET PO SCH ×2 (09:27→22:03)
[2022-01-14] MEDS: ZINC SULFATE 220 MG ( 50 ) CAPSULE PO SCH (09:27)
[2022-01-14] MEDS: METOPROLOL TARTRATE 25MG TABLET PO SCH ×2 (09:30→22:04)
[2022-01-14 16:00] VITALS: BP 135/51
[2022-01-14] MEDS: ENOXAPARIN 30MG/0.3ML SYR SUBCUT SCH (18:14)
[2022-01-14 20:00] VITALS: BP 127/80
[2022-01-14] MEDS: VANCOMYCIN 750MG PMX (XELLIA) 150 ML IV SCH (20:28)
[2022-01-14] MEDS: ZOLPIDEM TARTRATE 5MG TABLET PO PRN (22:07)
[2022-01-15] VITALS: BP 150/72
[2022-01-15 04:00] VITALS: BP 171/74
[2022-01-15] MEDS: PIPERACILLIN/TAZOBACTAM 3.375G in DEXT 5% WATER 50ML IV SCH ×3 (05:39→21:28)
[2022-01-15] MEDS: CLONIDINE 0.1MG TABLET PO PRN (05:39)
[2022-01-15 08:00] VITALS: BP 143/83
[2022-01-15] MEDS: ASPIRIN 325MG EC TABLET PO SCH (08:35)
[2022-01-15] MEDS: ZINC SULFATE 220 MG ( 50 ) CAPSULE PO SCH (08:35)
[2022-01-15] MEDS: CHOLECALCIFEROL (D3) 1000 UNIT TABLET PO SCH (08:35)
[2022-01-15] MEDS: FAMOTIDINE 20MG TABLET PO SCH ×2 (08:35→21:28)
[2022-01-15] MEDS: ASCORBIC ACID 500 MG TABLET PO SCH ×2 (08:35→21:28)
[2022-01-15] MEDS: METOPROLOL TARTRATE 25MG TABLET PO SCH ×2 (08:35→21:28)
[2022-01-15 12:00] VITALS: BP 140/74
[2022-01-15] MEDS ORDERED: NALOXONE HCL 0.4MG/ML VIAL IV PRN (14:15)
[2022-01-15] MEDS: FLUCONAZOLE 100MG TABLET PO SCH (15:25)
[2022-01-15 15:30] VITALS: BP 153/72
[2022-01-15] MEDS: ENOXAPARIN 30MG/0.3ML SYR SUBCUT SCH (17:29)
[2022-01-15] MEDS: VANCOMYCIN 750MG PMX (XELLIA) 150 ML IV SCH (18:07)
[2022-01-15 20:00] VITALS: BP 147/62
[2022-01-16] VITALS (7 sets, daily range): BP systolic 99–170; BP diastolic 54–89
[2022-01-16] MEDS: PIPERACILLIN/TAZOBACTAM 3.375G in DEXT 5% WATER 50ML IV SCH ×2 (06:11→15:23)
[2022-01-16] MEDS: FAMOTIDINE 20MG TABLET PO SCH ×2 (08:57→20:17)
[2022-01-16] MEDS: ASPIRIN 325MG EC TABLET PO SCH (08:57)
[2022-01-16] MEDS: FLUCONAZOLE 100MG TABLET PO SCH (08:57)
[2022-01-16] MEDS: ZINC SULFATE 220 MG ( 50 ) CAPSULE PO SCH (08:57)
[2022-01-16] MEDS: ASCORBIC ACID 500 MG TABLET PO SCH ×2 (08:57→20:17)
[2022-01-16] MEDS: CHOLECALCIFEROL (D3) 1000 UNIT TABLET PO SCH (08:57)
[2022-01-16] MEDS: METOPROLOL TARTRATE 25MG TABLET PO SCH ×2 (08:58→20:17)
[2022-01-16] MEDS: ENOXAPARIN 30MG/0.3ML SYR SUBCUT SCH (18:02)
[2022-01-16] MEDS: CLONIDINE 0.1MG TABLET PO PRN (21:27)
[2022-01-17] VITALS: BP 121/51
[2022-01-17] MEDS: NITROGLYCERIN OINT 1GM/INCH UDPKT TD SCH ×3 (00:20→14:23)
[2022-01-17 04:00] VITALS: BP 171/69
[2022-01-17] MEDS: CLONIDINE 0.1MG TABLET PO PRN (05:37)
[2022-01-17 08:00] VITALS: BP 143/69
[2022-01-17] MEDS: FLUCONAZOLE 100MG TABLET PO SCH (08:44)
[2022-01-17] MEDS: ZINC SULFATE 220 MG ( 50 ) CAPSULE PO SCH (08:44)
[2022-01-17] MEDS: ASCORBIC ACID 500 MG TABLET PO SCH (08:44)
[2022-01-17] MEDS: ASPIRIN 325MG EC TABLET PO SCH (08:44)
[2022-01-17] MEDS: FAMOTIDINE 20MG TABLET PO SCH (08:44)
[2022-01-17] MEDS: METOPROLOL TARTRATE 25MG TABLET PO SCH (08:44)
[2022-01-17] MEDS: CHOLECALCIFEROL (D3) 1000 UNIT TABLET PO SCH (08:45)
[2022-01-17 12:00] VITALS: BP 122/64
== END 2022-01-17 15:35 | DRG 853 ==
LOC: ER 11:30 → 6WST 15:31 → ENRESERV 16:00
PROVIDERS: ADMIT Internal Medicine; ATTEND Internal Medicine
PROC: 0JBQ0ZZ Excision of Right Foot Subcutaneous Tissue and Fascia, Open Approach (ICD-10-PCS; principal; 2022-01-13)
PROC: 0LBW0ZZ Excision of Left Foot Tendon, Open Approach (ICD-10-PCS; 2022-01-13)
PROC: 0KBP0ZZ Excision of Left Hip Muscle, Open Approach (ICD-10-PCS; 2022-01-14)
PROC: 0KBN0ZZ Excision of Right Hip Muscle, Open Approach (ICD-10-PCS; 2022-01-14)
PROC: 0KBP0ZZ Excision of Left Hip Muscle, Open Approach (ICD-10-PCS; 2022-01-14)
DX: A41.9 Sepsis, unspecified organism (principal); L89.154 Pressure ulcer of sacral region, stage 4; L89.224 Pressure ulcer of left hip, stage 4; G92.8 Other toxic encephalopathy; E43 Unspecified severe protein-calorie malnutrition; N39.0 Urinary tract infection, site not specified; I48.91 Unspecified atrial fibrillation; M19.90 Unspecified osteoarthritis, unspecified site; F03.90 Unspecified dementia, unspecified severity, without behavioral disturbance, psychotic disturbance, mood disturbance, and anxiety; D64.9 Anemia, unspecified; I50.9 Heart failure, unspecified; L89.210 Pressure ulcer of right hip, unstageable; L89.896 Pressure-induced deep tissue damage of other site; I11.0 Hypertensive heart disease with heart failure; R65.20 Severe sepsis without septic shock; B36.9 Superficial mycosis, unspecified; S90.922A Unspecified superficial injury of left foot, initial encounter; S90.921A Unspecified superficial injury of right foot, initial encounter; X58.XXXA Exposure to other specified factors, initial encounter; Y93.89 Activity, other specified; Y92.89 Other specified places as the place of occurrence of the external cause; Y99.8 Other external cause status; Z79.899 Other long term (current) drug therapy; Z68.20 Body mass index [BMI] 20.0-20.9, adult
CPT/HCPCS: 36415; 71045; 80048; 80053; 80202; 81003; 82040; 82550; 82553; 83605; 83735; 84100; 84134; 84145; 84484; 85025; 93005; 93970; 97162; 97166; 99291; J0696; J1650; J2060; J2405; J2543; J3370; J7030; J7060

== ENCOUNTER 2022-03-26 12:56 | Inpatient (IN) | payer MEDICARE, MEDICAID ==
[~2022-03-26] VITALS: Ht 154.9 cm; Wt 50.3 kg
[2022-03-26 15:10] LABS: BASOPHILS % 0.2 % (0.0-2.0); CHLORIDE 102 mEq/L (98-107); HEMATOCRIT. 38.1 % (36.0-48.0); HEMOGLOBIN. 12.4 g/dL (12.0-16.0); LYMPHOCYTES % 7.5 % (20.0-50.0); MEAN CORPUSCULAR HEMOGLOBIN 25.6 pg (28.0-32.0); MEAN CORPUSCULAR VOLUME 78.6 fL (81.0-99.0); MEAN PLATELET VOLUME 7.2 fl (7.4-10.4); MONOCYTES % 2.8 % (2.0-8.0); NEUTROPHILS % 89.5 % (40.0-76.0); PLATELET 550 x1000/uL (130-400); RED BLOOD CELL COUNT 4.85 mill/uL (4.2-5.4); RED CELL DISTRIBUTION WIDTH 19.7 % (11.6-14.6)
[2022-03-26 15:26] LABS: CREATINE KINASE 91 IU/L (26-192); ETHANOL BLOOD < 10 mg/dL
[2022-03-26] MEDS ORDERED: CEFTRIAXONE 1 G PREMIX 50 ML IV ONE (15:45)
[2022-03-26] MEDS ORDERED: VANCOMYCIN 1G PREMIX 200 ML IV SCH (15:45)
[2022-03-26] MEDS ORDERED: MORPHINE SULFATE 2 MG/ML CPJ (NOT FOR IM USE) IV ONE (16:00)
[2022-03-26 18:54] VITALS: BP 134/81
[2022-03-26] MEDS ORDERED: DOCUSATE SODIUM 100MG CAPSULE PO PRN (19:15)
[2022-03-26] MEDS ORDERED: MAGNESIUM/ALUMINUM HYDROXIDE/SIMETHICONE 30ML UDC PO PRN (19:15)
[2022-03-26] MEDS ORDERED: GUAIFENESIN 200MG/10ML SUGAR FREE UDC PO PRN (19:15)
[2022-03-26] MEDS ORDERED: KETOROLAC 15MG/ML VIAL IV PRN (19:15)
[2022-03-26] MEDS ORDERED: ONDANSETRON HCL 4MG/2ML INJ IV PRN (19:15)
[2022-03-26] MEDS ORDERED: IPRATROPIUM/ALBUTEROL 0.5-3(2.5)MG/3ML NEB NEB PRN (19:15)
[2022-03-26] MEDS ORDERED: ZOLPIDEM TARTRATE 5MG TABLET PO PRN (19:15)
[2022-03-26] MEDS ORDERED: CLONIDINE 0.1MG TABLET PO PRN (19:15)
[2022-03-26] MEDS ORDERED: NITROGLYCERIN 0.4MG TABLET SL SL PRN (19:15)
[2022-03-26] MEDS ORDERED: ACETAMINOPHEN 325MG TABLET PO PRN ×2 (19:15)
[2022-03-26] MEDS ORDERED: NA PHOS,M-B/NA PHOS,DI-BA ENEMA 118ML PR PRN (19:15)
[2022-03-26 20:00] VITALS: BP 155/85
[2022-03-26] MEDS ORDERED: ENOXAPARIN 40MG/0.4ML SYR SUBCUT SCH (20:00)
[2022-03-26] MEDS: METOPROLOL TARTRATE 25MG TABLET PO SCH ×2 (21:00→22:35)
[2022-03-26] MEDS: ASCORBIC ACID 500 MG TABLET PO SCH ×2 (21:00→22:35)
[2022-03-26] MEDS: SODIUM CHLORIDE 0.9% 1,000 ML IV SCH (22:18)
[2022-03-26] MEDS: PIPERACILLIN/TAZOBACTAM 3.375 G in DEXTROSE 5% WATER 50 ML IV SCH (22:19)
[2022-03-26 23:00] VITALS: BP 155/85
[2022-03-27] VITALS: BP 149/60
[2022-03-27 04:00] VITALS: BP 141/67
[2022-03-27 04:09] LABS: CLARITY URINE TURBID (CLEAR); COLOR URINE YELLOW (YELLOW); KETONES URINE TRACE (NEGATIVE); LEUKOCYTE ESTERASE URINE 3+ (NEGATIVE); NITRITE URINE NEGATIVE (NEGATIVE); OCCULT BLOOD URINE NEGATIVE (NEGATIVE); PH URINE >=9.0 (4.5-8.0); PROTEIN URINE 2+ (NEGATIVE); UROBILINOGEN URINE 0.2 E.U./dL (0.2-1.0)
[2022-03-27] MEDS ORDERED: VANCOMYCIN 500 MG in DEXT 5% WATER 100 ML IV SCH (05:00)
[2022-03-27] MEDS: PIPERACILLIN/TAZOBACTAM 3.375 G in DEXTROSE 5% WATER 50 ML IV SCH ×3 (06:09→21:57)
[2022-03-27 07:02] LABS: BASOPHILS % 0.2 % (0.0-2.0); EOSINOPHILS % 0.6 % (0.0-5.0); HEMATOCRIT. 31.5 % (36.0-48.0); HEMOGLOBIN. 10.3 g/dL (12.0-16.0); LYMPHOCYTES % 12.4 % (20.0-50.0); MEAN CORPUSCULAR HEMOGLOBIN 25.2 pg (28.0-32.0); MEAN PLATELET VOLUME 7.4 fl (7.4-10.4); MONOCYTES % 9.2 % (2.0-8.0); NEUTROPHILS % 77.6 % (40.0-76.0); PLATELET 425 x1000/uL (130-400); RED BLOOD CELL COUNT 4.09 mill/uL (4.2-5.4); RED CELL DISTRIBUTION WIDTH 19.7 % (11.6-14.6)
[2022-03-27 07:10] LABS: CHLORIDE 105 mEq/L (98-107)
[2022-03-27 07:18] LABS: HDL CHOLESTEROL 68 mg/dL (40-59); LDL CHOLESTEROL 64 mg/dL (5-100); PHOSPHORUS 3.3 mg/dL (2.5-4.9)
[2022-03-27 07:29] LABS: CREATINE KINASE MB FRACTION 1.1 ng/mL (0.5-3.6)
[2022-03-27 07:32] LABS: CREATINE KINASE MB FRACTION 1.2 ng/mL (0.5-3.6)
[2022-03-27 08:00] VITALS: BP 143/78
[2022-03-27] MEDS: PANTOPRAZOLE SODIUM 40 MG/VIAL IV SCH (09:31)
[2022-03-27] MEDS: TRAMADOL 50MG TABLET PO PRN (09:32)
[2022-03-27] MEDS: METOPROLOL TARTRATE 25MG TABLET PO SCH ×2 (09:32→21:00)
[2022-03-27] MEDS: THIAMINE HCL 100MG TABLET PO SCH (09:32)
[2022-03-27] MEDS: ASPIRIN 325MG EC TABLET PO SCH (09:32)
[2022-03-27] MEDS: ZINC SULFATE 220 MG ( 50 ) CAPSULE PO SCH (09:33)
[2022-03-27] MEDS: SODIUM CHLORIDE 0.9% 1,000 ML IV SCH ×2 (09:33→21:57)
[2022-03-27] MEDS: ASCORBIC ACID 500 MG TABLET PO SCH ×2 (09:33→21:56)
[2022-03-27 12:00] VITALS: BP 140/71
[2022-03-27 16:00] VITALS: BP 121/50
[2022-03-27 16:51] LABS: VITAMIN B12 SERUM 796 pg/mL (211-911)
[2022-03-27 20:00] VITALS: BP 107/83
[2022-03-27] MEDS: ENOXAPARIN 30MG/0.3ML SYR SUBCUT SCH (21:56)
[2022-03-28] VITALS: BP 129/70
[2022-03-28 04:00] VITALS: BP 118/74
[2022-03-28] MEDS: PIPERACILLIN/TAZOBACTAM 3.375 G in DEXTROSE 5% WATER 50 ML IV SCH ×3 (06:34→21:12)
[2022-03-28 08:00] VITALS: BP 121/78
[2022-03-28] MEDS: ZINC SULFATE 220 MG ( 50 ) CAPSULE PO SCH (09:44)
[2022-03-28] MEDS: ASPIRIN 325MG EC TABLET PO SCH (09:44)
[2022-03-28] MEDS: ASCORBIC ACID 500 MG TABLET PO SCH ×2 (09:44→20:32)
[2022-03-28] MEDS: MEGESTROL ACETATE 400 MG/10 ML UDC PO SCH (09:44)
[2022-03-28] MEDS: MULTIVITAMINS,THER W-MINERALS TABLET PO SCH (09:45)
[2022-03-28] MEDS: VANCOMYCIN 750MG PREMIX 150 ML IV SCH (09:45)
[2022-03-28] MEDS: METOPROLOL TARTRATE 25MG TABLET PO SCH ×2 (09:54→20:32)
[2022-03-28] MEDS: THIAMINE HCL 100MG TABLET PO SCH (09:54)
[2022-03-28] MEDS: PANTOPRAZOLE SODIUM 40 MG/VIAL IV SCH (09:54)
[2022-03-28] MEDS: SODIUM CHLORIDE 0.9% 1,000 ML IV SCH (11:30)
[2022-03-28 12:00] VITALS: BP 118/61
[2022-03-28 16:00] VITALS: BP 115/60
[2022-03-28] MEDS: ENOXAPARIN 30MG/0.3ML SYR SUBCUT SCH (18:04)
[2022-03-28 20:00] VITALS: BP 114/59
[2022-03-29] VITALS: BP 102/66
[2022-03-29 04:00] VITALS: BP 114/51
[2022-03-29] MEDS: SODIUM CHLORIDE 0.9% 1,000 ML IV SCH ×2 (05:40→13:26)
[2022-03-29] MEDS: PIPERACILLIN/TAZOBACTAM 3.375 G in DEXTROSE 5% WATER 50 ML IV SCH ×3 (05:40→21:57)
[2022-03-29 08:00] VITALS: BP 135/88
[2022-03-29] MEDS: THIAMINE HCL 100MG TABLET PO SCH (08:15)
[2022-03-29] MEDS: ZINC SULFATE 220 MG ( 50 ) CAPSULE PO SCH (08:15)
[2022-03-29] MEDS: MEGESTROL ACETATE 400 MG/10 ML UDC PO SCH (08:15)
[2022-03-29] MEDS: MULTIVITAMINS,THER W-MINERALS TABLET PO SCH (08:15)
[2022-03-29] MEDS: ASCORBIC ACID 500 MG TABLET PO SCH ×2 (08:15→21:56)
[2022-03-29] MEDS: ASPIRIN 325MG EC TABLET PO SCH (08:15)
[2022-03-29] MEDS: METOPROLOL TARTRATE 25MG TABLET PO SCH ×2 (08:16→21:56)
[2022-03-29] MEDS: FAMOTIDINE 20MG/2ML VIAL IV SCH (08:19)
[2022-03-29] MEDS: VANCOMYCIN 750MG PREMIX 150 ML IV SCH (08:20)
[2022-03-29 11:39] VITALS: BP 115/48
[2022-03-29 15:49] VITALS: BP 108/47
[2022-03-29] MEDS: ENOXAPARIN 30MG/0.3ML SYR SUBCUT SCH (16:24)
[2022-03-29 20:30] VITALS: BP 123/50
[2022-03-30 00:13] VITALS: BP 138/50
[2022-03-30] MEDS: SODIUM CHLORIDE 0.9% 1,000 ML IV SCH ×2 (03:18→13:36)
[2022-03-30 04:00] VITALS: BP 139/58
[2022-03-30] MEDS: PIPERACILLIN/TAZOBACTAM 3.375 G in DEXTROSE 5% WATER 50 ML IV SCH ×3 (07:04→21:06)
[2022-03-30 08:00] VITALS: BP 122/55
[2022-03-30] MEDS: VANCOMYCIN 750MG PREMIX 150 ML IV SCH (08:02)
[2022-03-30] MEDS: ZINC SULFATE 220 MG ( 50 ) CAPSULE PO SCH (08:02)
[2022-03-30] MEDS: MULTIVITAMINS,THER W-MINERALS TABLET PO SCH (08:02)
[2022-03-30] MEDS: MEGESTROL ACETATE 400 MG/10 ML UDC PO SCH (08:02)
[2022-03-30] MEDS: ASPIRIN 325MG EC TABLET PO SCH (08:03)
[2022-03-30] MEDS: METOPROLOL TARTRATE 25MG TABLET PO SCH ×2 (08:03→20:46)
[2022-03-30] MEDS: ASCORBIC ACID 500 MG TABLET PO SCH ×2 (08:03→20:44)
[2022-03-30] MEDS: FAMOTIDINE 20MG/2ML VIAL IV SCH (08:03)
[2022-03-30] MEDS: THIAMINE HCL 100MG TABLET PO SCH (08:03)
[2022-03-30 08:08] LABS: CHLORIDE 112 mEq/L (98-107)
[2022-03-30] MEDS ORDERED: POTASSIUM CHLORIDE 20MEQ/PACKET PO NR (09:00)
[2022-03-30 12:00] VITALS: BP 136/71
[2022-03-30 15:59] VITALS: BP 131/52
[2022-03-30] MEDS: ENOXAPARIN 30MG/0.3ML SYR SUBCUT SCH (16:53)
[2022-03-30 20:00] VITALS: BP 172/52
[2022-03-30] MEDS: TRAMADOL 50MG TABLET PO PRN (23:35)
[2022-03-31] VITALS: BP 147/65
[2022-03-31 04:00] VITALS: BP 146/62
[2022-03-31] MEDS: PIPERACILLIN/TAZOBACTAM 3.375 G in DEXTROSE 5% WATER 50 ML IV SCH ×3 (05:12→21:05)
[2022-03-31] MEDS: SODIUM CHLORIDE 0.9% 1,000 ML IV SCH ×2 (05:13→21:06)
[2022-03-31] MEDS ORDERED: VANCOMYCIN 500MG PREMIX 100 ML IV SCH (09:00)
[2022-03-31] MEDS: MEGESTROL ACETATE 400 MG/10 ML UDC PO SCH (11:00)
[2022-03-31] MEDS: FAMOTIDINE 20MG TABLET PO SCH (11:01)
[2022-03-31] MEDS: ASCORBIC ACID 500 MG TABLET PO SCH ×2 (11:01→21:05)
[2022-03-31] MEDS: THIAMINE HCL 100MG TABLET PO SCH (11:01)
[2022-03-31] MEDS: ZINC SULFATE 220 MG ( 50 ) CAPSULE PO SCH (11:01)
[2022-03-31] MEDS: ASPIRIN 325MG EC TABLET PO SCH (11:01)
[2022-03-31] MEDS: METOPROLOL TARTRATE 25MG TABLET PO SCH ×2 (11:01→21:06)
[2022-03-31] MEDS: MULTIVITAMINS,THER W-MINERALS TABLET PO SCH (11:10)
[2022-03-31 12:00] VITALS: BP 159/71
[2022-03-31] MEDS ORDERED: NALOXONE HCL 0.4MG/ML VIAL IV PRN (15:30)
[2022-03-31 16:00] VITALS: BP 131/64
[2022-03-31] MEDS: ENOXAPARIN 30MG/0.3ML SYR SUBCUT SCH (18:00)
[2022-03-31 20:00] VITALS: BP 160/80
[2022-04-01] VITALS: BP 150/62
[2022-04-01 04:00] VITALS: BP 150/66
[2022-04-01 08:00] VITALS: BP 112/65
[2022-04-01] MEDS: SODIUM CHLORIDE 0.9% 1,000 ML IV SCH ×2 (08:50→17:25)
[2022-04-01] MEDS: MEGESTROL ACETATE 400 MG/10 ML UDC PO SCH (09:00)
[2022-04-01] MEDS: MULTIVITAMINS,THER W-MINERALS TABLET PO SCH (09:04)
[2022-04-01] MEDS: ZINC SULFATE 220 MG ( 50 ) CAPSULE PO SCH (09:04)
[2022-04-01] MEDS: ASPIRIN 325MG EC TABLET PO SCH (09:05)
[2022-04-01] MEDS: METOPROLOL TARTRATE 25MG TABLET PO SCH ×2 (09:05→20:54)
[2022-04-01] MEDS: FAMOTIDINE 20MG TABLET PO SCH (09:05)
[2022-04-01] MEDS: ASCORBIC ACID 500 MG TABLET PO SCH ×2 (09:05→20:53)
[2022-04-01] MEDS: THIAMINE HCL 100MG TABLET PO SCH (09:05)
[2022-04-01 12:00] VITALS: BP 127/69
[2022-04-01 15:59] VITALS: BP 124/72
[2022-04-01] MEDS: ENOXAPARIN 30MG/0.3ML SYR SUBCUT SCH (17:31)
[2022-04-01 20:00] VITALS: BP 146/69
[2022-04-02] VITALS: BP 160/69
[2022-04-02 04:00] VITALS: BP 165/63
[2022-04-02 08:00] VITALS: BP 158/70
[2022-04-02] MEDS: METOPROLOL TARTRATE 25MG TABLET PO SCH ×3 (08:33→20:47)
[2022-04-02] MEDS: FAMOTIDINE 20MG TABLET PO SCH ×2 (08:33→08:45)
[2022-04-02] MEDS: MEGESTROL ACETATE 400 MG/10 ML UDC PO SCH ×2 (08:33→08:45)
[2022-04-02] MEDS: ASCORBIC ACID 500 MG TABLET PO SCH ×3 (08:33→20:47)
[2022-04-02] MEDS: ASPIRIN 325MG EC TABLET PO SCH ×2 (08:33→08:45)
[2022-04-02] MEDS: THIAMINE HCL 100MG TABLET PO SCH ×2 (08:33→08:46)
[2022-04-02] MEDS: ZINC SULFATE 220 MG ( 50 ) CAPSULE PO SCH ×2 (08:33→08:45)
[2022-04-02] MEDS: MULTIVITAMINS,THER W-MINERALS TABLET PO SCH ×2 (08:34→08:45)
[2022-04-02 12:00] VITALS: BP 119/69
[2022-04-02 16:00] VITALS: BP 124/73
[2022-04-02] MEDS: SODIUM CHLORIDE 0.9% 1,000 ML IV SCH ×2 (17:26→20:47)
[2022-04-02] MEDS: ENOXAPARIN 30MG/0.3ML SYR SUBCUT SCH (17:26)
[2022-04-02 20:00] VITALS: BP 156/95
[2022-04-03] VITALS: BP 146/76
[2022-04-03 04:00] VITALS: BP 144/84
[2022-04-03 08:00] VITALS: BP 158/68
[2022-04-03] MEDS: MULTIVITAMINS,THER W-MINERALS TABLET PO SCH (08:55)
[2022-04-03] MEDS: ZINC SULFATE 220 MG ( 50 ) CAPSULE PO SCH (08:55)
[2022-04-03] MEDS: FAMOTIDINE 20MG TABLET PO SCH (08:55)
[2022-04-03] MEDS: THIAMINE HCL 100MG TABLET PO SCH (08:55)
[2022-04-03] MEDS: ASPIRIN 325MG EC TABLET PO SCH (08:55)
[2022-04-03] MEDS: ASCORBIC ACID 500 MG TABLET PO SCH ×2 (08:55→20:37)
[2022-04-03] MEDS: MEGESTROL ACETATE 400 MG/10 ML UDC PO SCH (08:55)
[2022-04-03] MEDS: METOPROLOL TARTRATE 25MG TABLET PO SCH ×2 (08:56→20:37)
[2022-04-03 12:00] VITALS: BP 122/44
[2022-04-03] MEDS: SODIUM CHLORIDE 0.9% 1,000 ML IV SCH ×2 (13:34→20:37)
[2022-04-03 16:00] VITALS: BP 128/99
[2022-04-03] MEDS: ENOXAPARIN 30MG/0.3ML SYR SUBCUT SCH (18:25)
[2022-04-03 20:00] VITALS: BP 115/81
[2022-04-04] VITALS (7 sets, daily range): BP systolic 105–184; BP diastolic 54–76
[2022-04-04] MEDS: MEGESTROL ACETATE 400 MG/10 ML UDC PO SCH (08:17)
[2022-04-04] MEDS: METOPROLOL TARTRATE 25MG TABLET PO SCH ×2 (08:23→20:21)
[2022-04-04] MEDS: ASCORBIC ACID 500 MG TABLET PO SCH ×2 (08:23→20:21)
[2022-04-04] MEDS: ASPIRIN 325MG EC TABLET PO SCH (08:23)
[2022-04-04] MEDS: MULTIVITAMINS,THER W-MINERALS TABLET PO SCH (08:23)
[2022-04-04] MEDS: FAMOTIDINE 20MG TABLET PO SCH (08:23)
[2022-04-04] MEDS: THIAMINE HCL 100MG TABLET PO SCH (08:23)
[2022-04-04] MEDS: ZINC SULFATE 220 MG ( 50 ) CAPSULE PO SCH (08:23)
[2022-04-04] MEDS: SODIUM CHLORIDE 0.9% 1,000 ML IV SCH (15:56)
[2022-04-04] MEDS: ENOXAPARIN 30MG/0.3ML SYR SUBCUT SCH (18:50)
[2022-04-05] VITALS: BP 169/99
[2022-04-05 04:00] VITALS: BP 157/78
[2022-04-05] MEDS: SODIUM CHLORIDE 0.9% 1,000 ML IV SCH (05:23)
[2022-04-05 08:00] VITALS: BP 132/51
[2022-04-05] MEDS ORDERED: HYDRALAZINE 20MG/ML VIAL IV PRN (08:45)
[2022-04-05] MEDS ORDERED: LOSARTAN POTASSIUM 100 MG TABLET PO SCH (09:00)
[2022-04-05] MEDS: MEGESTROL ACETATE 400 MG/10 ML UDC PO SCH ×2 (09:00→09:08)
[2022-04-05] MEDS: ZINC SULFATE 220 MG ( 50 ) CAPSULE PO SCH (09:07)
[2022-04-05] MEDS: FAMOTIDINE 20MG TABLET PO SCH (09:08)
[2022-04-05] MEDS: THIAMINE HCL 100MG TABLET PO SCH (09:08)
[2022-04-05] MEDS: ASCORBIC ACID 500 MG TABLET PO SCH (09:08)
[2022-04-05] MEDS: MULTIVITAMINS,THER W-MINERALS TABLET PO SCH (09:08)
[2022-04-05] MEDS: ASPIRIN 325MG EC TABLET PO SCH (09:24)
[2022-04-05 12:00] VITALS: BP 132/51
== END 2022-04-05 11:45 | DRG 853 ==
LOC: ER 13:09 → 8WST 16:41 → EDBEDREQ 17:06 → EDBEDREQTM 17:06 → ENRESERV 17:25
PROVIDERS: ADMIT Internal Medicine; ATTEND Internal Medicine
PROC: 0KBP0ZZ Excision of Left Hip Muscle, Open Approach (ICD-10-PCS; principal; 2022-03-27)
PROC: 0KBN0ZZ Excision of Right Hip Muscle, Open Approach (ICD-10-PCS; 2022-03-27)
PROC: 0KBP0ZZ Excision of Left Hip Muscle, Open Approach (ICD-10-PCS; 2022-03-27)
PROC: 0KBN0ZZ Excision of Right Hip Muscle, Open Approach (ICD-10-PCS; 2022-03-27)
PROC: 0JBR0ZZ Excision of Left Foot Subcutaneous Tissue and Fascia, Open Approach (ICD-10-PCS; 2022-03-28)
PROC: 0LBN0ZZ Excision of Right Lower Leg Tendon, Open Approach (ICD-10-PCS; 2022-03-28)
DX: A41.9 Sepsis, unspecified organism (principal); G92.8 Other toxic encephalopathy; L89.154 Pressure ulcer of sacral region, stage 4; L89.224 Pressure ulcer of left hip, stage 4; L89.214 Pressure ulcer of right hip, stage 4; L03.90 Cellulitis, unspecified; E44.0 Moderate protein-calorie malnutrition; K50.90 Crohn's disease, unspecified, without complications; Z20.822 Contact with and (suspected) exposure to COVID-19; M19.90 Unspecified osteoarthritis, unspecified site; I50.9 Heart failure, unspecified; I11.0 Hypertensive heart disease with heart failure; R65.20 Severe sepsis without septic shock; S90.922A Unspecified superficial injury of left foot, initial encounter; S90.921A Unspecified superficial injury of right foot, initial encounter; X58.XXXA Exposure to other specified factors, initial encounter; Y93.89 Activity, other specified; Y92.89 Other specified places as the place of occurrence of the external cause; Y99.8 Other external cause status; Z68.21 Body mass index [BMI] 21.0-21.9, adult
CPT/HCPCS: 36415; 71045; 80048; 80053; 80061; 80202; 80320; 81003; 82040; 82140; 82550; 82553; 82607; 83036; 83605; 83735; 84100; 84134; 84443; 84484; 85025; 87426; 93005; 93970; 99285; C9113; J0696; J1650; J1885; J2270; J2543; J3370; J3490; J7030; J7060; G0480

== ENCOUNTER 2022-05-17 10:23 | Emergency (ER) | payer MEDICARE, MEDICAID ==
[~2022-05-17] VITALS: Ht 160 cm; Wt 50.0 kg
[2022-05-17 11:56] VITALS: BP 165/90
[2022-05-17 12:54] LABS: BASOPHILS % 0.6 % (0.0-2.0); EOSINOPHILS % 0.7 % (0.0-5.0); LYMPHOCYTES % 12.4 % (20.0-50.0); MEAN CORPUSCULAR HEMOGLOBIN 25.1 pg (28.0-32.0); MEAN CORPUSCULAR VOLUME 77.6 fL (81.0-99.0); MEAN PLATELET VOLUME 6.9 fl (7.4-10.4); MONOCYTES % 6.6 % (2.0-8.0); NEUTROPHILS % 79.7 % (40.0-76.0); PLATELET 424 x1000/uL (130-400); RED BLOOD CELL COUNT 4.39 mill/uL (4.2-5.4); RED CELL DISTRIBUTION WIDTH 18.5 % (11.6-14.6)
[2022-05-17 13:01] LABS: CHLORIDE 105 mEq/L (98-107)
== END 2022-05-17 15:59 | disposition home or self-care (01) ==
LOC: ER 10:52
DX: G93.40 Encephalopathy, unspecified (principal); E86.0 Dehydration; D64.9 Anemia, unspecified; I11.0 Hypertensive heart disease with heart failure; I50.9 Heart failure, unspecified; K21.9 Gastro-esophageal reflux disease without esophagitis
CPT/HCPCS: 36415; 80053; 85025; 93005; 99284